=== PATIENT | male | born 1980 | race Caucasian/White ===

== ENCOUNTER 2017-01-02 19:56 | Emergency (ER) | payer MEDICAID ==
[~2017-01-02] VITALS: Ht 182.9 cm; Wt 85.0 kg
[2017-01-02 20:05] VITALS: BP 128/97; PULSE 98; RESP 20; TEMP 98.1; O2SAT 96
[2017-01-02] MEDS ORDERED: ASPIRIN 81 MG CHEW TAB PO ONE (20:15)
[2017-01-02] MEDS ORDERED: SODIUM CHLORIDE 0.9% FLUSH 10 ML FLUSH IVF PRN (20:15)
--- NOTE | 2017-01-02 20:24 | PD ---
HPI Chief Complaint: Chest Pain Time Seen by Provider: 20:06 Travel History International Travel<30 days: No Contact w/Intl Traveler<30days: No Traveled to known affect area: No History of Present Illness HPI Patient is a 36-year-old male with history of bipolar disorder who presents the emergency department for chest pain. Patient is here visiting family and was helping [employer], he was on a ladder and states that he "almost fell off" and developed chest pain. Chest pain is left-sided sternum, worse with movement, primarily sharp. It has been constant for the last 1-2 hours. Patient states that the last time he had this chest pain "they gave me Haldol and put me in psychiatry and let me sleep for 3 days and it got better". Patient states that he has associated anxiety, sense of palpitations and the world closing in upon him. He denies any history of cardiac disease. States that his father had an [place] and CABG. PFSH Past Medical History Bipolar Disorder: Yes Anxiety: Yes Depression: Yes Cardiovascular Problems: Yes (HEART MURMUR) Schizophrenia: Yes Tetanus Vaccination: Unknown Influenza Vaccination: No Past Surgical History Tonsillectomy: Yes (T&A) Family History Family Myocardial Infarction: Yes Social History Alcohol Use: Yes Tobacco Use: Yes (1 PPD) Substance Use: Yes Allergies-Medications (Allergen,Severity, Reaction): Coded Allergies: Trazodone (Verified Allergy, Mild, GI UPSET, 01/02/17) Reported Meds & Prescriptions Reported Meds & Active Scripts Active Reported Klonopin (Clonazepam) 0.5 Mg Tab 0.5 Mg PO BID Benztropine (Benztropine Mesylate) 0.5 Mg Tab 0.5 Mg PO BID Wellbutrin SR 12 HR (Bupropion HCl) 100 Mg Tab 100 Mg PO Q12HR Fluphenazine Decanoate Inj (Fluphenazine Decanoate) 125 Mg/5 Ml Inj 12.5 Mg IM Q21D Fluphenazine (Fluphenazine HCl) 1 Mg Tab 1 Mg PO BID Review of Systems ROS Limitations: Uncooperative, Poor Historian Physical Exam Exam Limitations: Poor Historian, Uncooperative Narrative GENERAL: male restless and fidgety SKIN: Focused skin assessment warm/dry. HEAD: Normocephalic. EYES: No scleral icterus. No injection or drainage. ENT: No nasal bleeding or discharge. Mucous membranes pink and moist. NECK: Supple CARDIOVASCULAR: Regular rate and rhythm. No murmur appreciated. Chest pain reproducible on exam. RESPIRATORY: No accessory muscle use. Clear to auscultation. Breath sounds equal bilaterally. GASTROINTESTINAL: Abdomen soft, non-tender, nondistended. MUSCULOSKELETAL: No obvious deformities. No edema. NEUROLOGICAL: Awake and alert. Restless, fidgeting. PSYCHIATRIC: Tangential thought process, poor insight and judgment Data Data Last Documented VS Vital Signs Date Time Temp Pulse Resp B/P Pulse Ox O2 Delivery O2 Flow Rate FiO2 01/02/17 20:05 98.1 98 20 128/97 96 Orders Electrocardiogram (01/02/17 20:06) Basic Metabolic Panel (Bmp) (01/02/17 20:06) Ckmb (Isoenzyme) Profile (01/02/17 20:06) Complete Blood Count With Diff (01/02/17 20:06) Magnesium (Mg) (01/02/17 20:06) Prothrombin Time / Inr (Pt) (01/02/17 20:06) Act Partial Throm Time (Ptt) (01/02/17 20:06) Troponin I (01/02/17 20:06) Chest, Single Ap (01/02/17 20:06) Ecg Monitoring (01/02/17 20:06) Bilateral Bp Monitoring (01/02/17 20:06) Iv Access Insert/Monitor (01/02/17 20:06) Oximetry (01/02/17 20:06) Aspirin Chew (Aspirin Chew) (01/02/17 20:15) Sodium Chloride 0.9% Flush (Ns Flush) (01/02/17 20:15) Drug Screen, Random Urine (01/02/17 20:06) Alcohol (Ethanol) (01/02/17 20:06) Haloperidol Inj (Haldol Inj) (01/02/17 20:30) CKMB (01/02/17 20:10) CKMB% (01/02/17 20:10) Troponin I (01/02/17 22:10) Electrocardiogram (01/02/17 22:10) Labs Laboratory Tests Test 01/02/17 01/02/17 20:10 22:05 White Blood Count 13.0 TH/MM3 Red Blood Count 5.56 MIL/MM3 Hemoglobin 15.3 GM/DL Hematocrit 44.9 % Mean Corpuscular Volume 80.8 FL Mean Corpuscular Hemoglobin 27.5 PG Mean Corpuscular Hemoglobin 34.1 % Concent Red Cell Distribution Width 13.5 % Platelet Count 352 TH/MM3 Mean Platelet Volume 9.0 FL Neutrophils (%) (Auto) 56.9 % Lymphocytes (%) (Auto) 31.8 % Monocytes (%) (Auto) 9.8 % Eosinophils (%) (Auto) 0.9 % Basophils (%) (Auto) 0.6 % Neutrophils # (Auto) 7.4 TH/MM3 Lymphocytes # (Auto) 4.1 TH/MM3 Monocytes # (Auto) 1.3 TH/MM3 Eosinophils # (Auto) 0.1 TH/MM3 Basophils # (Auto) 0.1 TH/MM3 CBC Comment DIFF FINAL Differential Comment Prothrombin Time 9.8 SEC Prothromb Time International 0.9 RATIO Ratio Activated Partial 29.9 SEC Thromboplast Time Sodium Level 138 MEQ/L Potassium Level 3.6 MEQ/L Chloride Level 102 MEQ/L Carbon Dioxide Level 26.6 MEQ/L Anion Gap 9 MEQ/L Blood Urea Nitrogen 7 MG/DL Creatinine 0.81 MG/DL Estimat Glomerular Filtration 108 ML/MIN Rate Random Glucose 121 MG/DL Calcium Level 9.2 MG/DL Magnesium Level 2.2 MG/DL Total Creatine Kinase 142 U/L Creatine Kinase MB 0.6 NG/ML Troponin I LESS THAN 0.02 LESS THAN 0.02 NG/ML NG/ML Ethyl Alcohol Level LESS THAN 3 MG/DL MDM Medical Decision Making Medical Screen Exam Complete: Yes Emergency Medical Condition: Yes Medical Record Reviewed: Yes Differential Diagnosis 36-year-old male with history of bipolar disorder here with complaint of sharp left-sided chest pain made worse with movement times one to 2 hours. Differential includes musculoskeletal, anxiety, ACS and must likely PE or dissection. Patient states previously that Haldol has helped this chest pain, suspect that there is certainly an overtone of his bipolar disorder contributing to his symptoms. Narrative Course Patient placed on monitor, IV established and blood obtained. Twelve-lead EKG shows sinus rhythm without notable ST or T-wave abnormalities and normal intervals. Patient was given aspirin, Haldol per his request. Portable chest x -ray obtained that by my read shows no acute abnormalities. CBC, BMP, magnesium , CK-MB, troponin, coags, blood alcohol level and urine drug screen unremarkable. Patient's pain is improved and he is resting comfortably after Haldol. He does not have any suicidal or homicidal ideation to warrant psychiatric evaluation in the ER. He had a repeat delta 2 hour troponin and EKG showing no changes and patient was reassured and discharged home. Diagnosis Primary Impression: Atypical chest pain Referrals: [facility] call for appointment [facility] call for appointment Additional Instructions: EKG, blood work and chest x-ray today were normal without evidence of heart disease, heart attack. Follow-up with primary care provider to establish care. Follow-up with Cyril Mejía for management of bipolar disorder. Med/Other Pt SpecificInfo: No Change to Meds Disposition: 01 DISCHARGE HOME Condition: Stable Sunitha Doe MD Jan 02, 2017 20:23
[2017-01-02 20:26] LABS: AUTOMATED NEUTROPHIL # 7.4 TH/MM3 (1.8-7.7); BASOPHIL # 0.1 TH/MM3 (0-0.2); BASOPHIL % 0.6 % (0.0-2.0); EOSINOPHIL # 0.1 TH/MM3 (0-0.4); EOSINOPHIL % 0.9 % (0.0-4.0); HEMATOCRIT 44.9 % (39.0-51.0); HEMO FLAGS DIFF FINAL; LYMPH % 31.8 % (9.0-44.0); LYMPHOCYTE # 4.1 TH/MM3 (1.0-4.8); MEAN CELL VOLUME 80.8 FL (80.0-100.0); MEAN CORPUSCULAR HEMOGLOBIN 27.5 PG (27.0-34.0); MEAN CORPUSCULAR HGB CONC 34.1 % (32.0-36.0); MONO % 9.8 % (0.0-8.0); NEUT % 56.9 % (16.0-70.0); PLATELET COUNT 352 TH/MM3 (150-450); RED BLOOD COUNT 5.56 MIL/MM3 (4.50-5.90); RED CELL DISTRIBUTION WIDTH 13.5 % (11.6-17.2)
[2017-01-02] MEDS ORDERED: HALOPERIDOL LACTATE 5 MG/ML AMP IM ONE (20:30)
--- NOTE | 2017-01-02 20:33 | RADRPT ---
EXAM DATE/TIME: 01/02/2017 20:12 [facility] COMPARISON: No previous studies available for comparison. INDICATIONS : Chest pain. MEDICAL HISTORY : None. SURGICAL HISTORY : None. ENCOUNTER: Initial ACUITY: 1 day PAIN SCORE: 6/10 LOCATION: Left upper chest FINDINGS: A single view of the chest demonstrates the lungs to be symmetrically aerated without evidence of mas s, infiltrate or effusion. The cardiomediastinal contours are unremarkable. Osseous structures are intact.CONCLUSION: No evidence of acute cardiopulmonary disease. Floyd Mendez MD on January 02, 2017 at 20:31 Board Certified Radiologist. This report was verified electronically.
[2017-01-02 20:45] LABS: APTT (PATIENT) 29.9 SEC (24.3-30.1); INTERNATIONAL NORMALIZED RATIO 0.9 RATIO; PROTHROMBIN TIME - PATIENT 9.8 SEC (9.8-11.6)
[2017-01-02 20:52] LABS: ANION GAP 9 MEQ/L (5-15); BICARBONATE 26.6 MEQ/L (21.0-32.0); BLOOD UREA NITROGEN 7 MG/DL (7-18); CHLORIDE 102 MEQ/L (98-107); GLOMERULAR FILTRATION RATE 108 ML/MIN (>89); MAGNESIUM 2.2 MG/DL (1.5-2.5); POTASSIUM 3.6 MEQ/L (3.5-5.1); SODIUM (NA) 138 MEQ/L (136-145)
[2017-01-02 20:56] LABS: CREATINE KINASE 142 U/L (39-308)
[2017-01-02 21:09] LABS: CKMB 0.6 NG/ML (0.5-3.6)
[2017-01-02] MEDS ORDERED: BENZ0.5T PO (21:32)
[2017-01-02] MEDS ORDERED: CLON.5 PO (21:32)
[2017-01-02] MEDS ORDERED: FLUP1INJ IM (21:32)
[2017-01-02] MEDS ORDERED: BUPR100CR PO (21:32)
[2017-01-02] MEDS ORDERED: FLUP1TAB PO (21:32)
[2017-01-02 23:38] LABS: AMPHETAMINE, URINE POS (NEG); BARBITURATES, URINE NEG (NEG); COCAINE, URINE NEG (NEG)
--- NOTE | 2017-01-03 12:14 | EKG ---
Date Performed: 01/02/2017 Time Performed: 22:08:14 PTAGE: 36 years EKG: Sinus rhythm WITH SINUS ARRHYTHMIA NORMAL ECG PREVIOUS TRACING : 01/02/2017 20.01 Compared to prior tracing no significant change DOCTOR: Chon Cleary Interpretating Date/Time 01/03/2017 12:11:51
--- NOTE | 2017-01-03 12:19 | EKG ---
Date Performed: 01/02/2017 Time Performed: 20:01:23 PTAGE: 36 years EKG: Sinus rhythm NORMAL ECG NO PREVIOUS TRACING DOCTOR: Chon Cleary Interpretating Date/Time 01/03/2017 12:14:36
== END 2017-01-03 00:17 | disposition home or self-care (01) ==
LOC: NEPE 19:56
DX: R07.89 Other chest pain (principal); I49.8 Other specified cardiac arrhythmias; F31.9 Bipolar disorder, unspecified; F20.9 Schizophrenia, unspecified; R01.1 Cardiac murmur, unspecified; F17.210 Nicotine dependence, cigarettes, uncomplicated
CPT/HCPCS: 71010; 80048; 80307; 82550; 82552; 83735; 84484; 85025; 85610; 85730; 93005; 96372; 99285; J1630